=== PATIENT | female | born 1970 ===

== ENCOUNTER 2016-10-15 18:15 | Inpatient (IN) | payer OTHER ==
[2016-10-15] MEDS ORDERED: Sodium Chloride 0.9% 1,000 ML IV STA ×2 (18:32→21:39)
--- NOTE | 2016-10-15 18:45 | ED PDOC ---
HPI: Abdomen Time Seen by Provider: 10/15/16 18:21 Chief Complaint (Nursing): Abdominal Pain Chief Complaint (Provider): Abdominal Pain History Per: Patient History/Exam Limitations: no limitations Onset/Duration Of Symptoms: Days (x2) Current Symptoms Are (Timing): Still Present Additional Complaint(s): Amanda Rao is a 46 year old female who presents to the emergency department with a complaint of abdominal pain associated with 1 episode of non-bloody, non- bilious vomiting ongoing for 2 days. Denied fever, chills, diarrhea, constipation, dysuria, hematuria or taking pain medication for relief. PMD: none provided Past Medical History Reviewed: Historical Data, Nursing Documentation, Vital Signs Vital Signs: Last Vital Signs Temp 97.9 F 10/17/16 16:09 Pulse 80 10/17/16 16:09 Resp 18 10/17/16 16:09 BP 123/77 10/17/16 16:09 Pulse Ox 100 10/17/16 23:36 - Medical History PMH: Anemia Denies: Chronic Kidney Disease - Family History Family History: States: Unknown Family Hx - Home Medications Home Medications: Ambulatory Orders Medication Instructions Recorded Amoxicillin/Clavulanate [Augmentin 1 tab PO Q12 #14 tab 10/17/16 875 MG-125 MG] Ferrous Sulfate 325 mg PO BID #60 tablet 10/17/16 oxyCODONE/Acetaminophen [Percocet 1 tab PO Q6 PRN #20 tab 10/17/16 5/325 mg Tab] - Allergies Allergies/Adverse Reactions: Allergies Allergy/AdvReac Type Severity Reaction Status Date / Time No Known Allergies Allergy Verified 10/15/16 21:45 Review of Systems ROS Statement: Except As Marked, All Systems Reviewed And Found Negative Constitutional: Negative for: Fever, Chills Gastrointestinal: Positive for: Nausea, Vomiting (non-blood, non-bilious), Abdominal Pain. Negative for: Diarrhea, Constipation Genitourinary Female: Negative for: Dysuria, Hematuria Physical Exam - Reviewed Nursing Documentation Reviewed: Yes Vital Signs Reviewed: Yes - Physical Exam Appears: Positive for: Well, Non-toxic, No Acute Distress Head Exam: Positive for: ATRAUMATIC, NORMAL INSPECTION, NORMOCEPHALIC Skin: Positive for: Normal Color Cardiovascular/Chest: Positive for: Regular Rate, Rhythm Respiratory: Positive for: Normal Breath Sounds. Negative for: Crackles, Rales , Rhonchi, Wheezing Gastrointestinal/Abdominal: Positive for: Bowel Sounds, Soft, Tenderness ( general). Negative for: Normal Exam, Guarding, Rebound Neurologic/Psych: Positive for: Alert, civil engineer helper II-XII, Oriented - Laboratory Results Result Diagrams: 10/17/16 05:10 10/17/16 06:50 - ECG O2 Sat by Pulse Oximetry: 100 (RA) Pulse Ox Interpretation: Normal Medical Decision Making Medical Decision Making: Initial Impression: Abdominal pain Initial Plan: * CT ABD/Pelvis with IV contrast * EKG * Labs * Lipase * Urine dipstick * Urine * Bentyl 20mg PO * NS 1,000ml IV per 1,000mls/hr * Urinalysis Scribe Attestation: Documented by Marisa Bonilla, acting as a scribe for Shi Lindsay MD. Provider Scribe Attestation: All medical record entries made by the Scribe were at my direction and personally dictated by me. I have reviewed the chart and agree that the record accurately reflects my personal performance of the history, physical exam, medical decision making, and the department course for this patient. I have also personally directed, reviewed, and agree with the discharge instructions and disposition. Disposition - Clinical Impression Clinical Impression: Abdominal pain in female - Patient ED Disposition Is Patient to be Admitted: Transfer of Care - Disposition Disposition Time: 19:00 Condition: STABLE Patient Signed Over To: Chidi Montalvo Handoff Comments: Pending labs and CT.
[2016-10-15 19:05] LABS: BASO # 0.1 K/uL (0.0-0.2); BASO % 0.4 % (0.0-2.0); EOS # 0.1 K/uL (0.0-0.7); EOS % 0.8 % (0.0-4.0); HEMATOCRIT 32.6 % (34.0-47.0); LYMPH # 2.1 K/uL (1.0-4.3); LYMPH % 13.8 % (20.0-40.0); MEAN CORPUSCULAR HEMOGLOBIN 22.4 pg (27.0-31.0); MEAN CORPUSCULAR HGB CONC 31.6 g/dL (33.0-37.0); MEAN PLATELET VOLUME 8.6 fl (7.2-11.7); MONO # 1.1 K/uL (0.0-0.8); MONO % 7.4 % (0.0-10.0); NEUT # 11.6 K/uL (1.8-7.0); NEUT % 77.6 % (50.0-75.0); RED CELL DISTRIBUTION WIDTH 17.3 % (11.5-14.5)
[2016-10-15 19:16] LABS: ALB/GLOB RATIO 1.3 (1.0-2.1); ALKALINE PHOSPHATASE 97 U/L (38-126); ALT/SGPT 27 U/L (9-52); AST/SGOT 24 U/L (14-36); BILIRUBIN,TOTAL 0.2 mg/dl (0.2-1.3); BLOOD UREA NITROGEN 12 mg/dl (7-17); CARBON DIOXIDE 23 mmol/L (22-30); CHLORIDE 106 mmol/L (98-107); GFR AFRICAN-AMERICAN > 60; GLUCOSE,RANDOM 90 mg/dL (65-105); LIPASE 168 U/L (23-300); POTASSIUM 3.8 MMOL/L (3.6-5.0); SODIUM 140 mmol/l (132-148); TOTAL PROTEIN 7.8 G/DL (6.3-8.2)
[2016-10-15 19:16] LABS: URINE BILIRUBIN NEGATIVE (NEGATIVE); URINE BLOOD NEGATIVE (NEGATIVE); URINE COLOR YELLOW (YELLOW); URINE GLUCOSE (UA) NEG (Normal); URINE KETONE NEGATIVE (NEGATIVE); URINE LEUKOCYTE ESTERASE NEG Leu/uL (Negative); URINE PROTEIN NEGATIVE (NEGATIVE); URINE UROBILINOGEN 0.2-1.0 mg/dL (0.2-1.0)
[2016-10-15] MEDS ORDERED: Sodium Chloride 0.9% 50 ML IV ONE (20:09)
[2016-10-15] MEDS ORDERED: Iohexol 300 100 ML IJ ONE (20:09)
--- NOTE | 2016-10-15 21:36 | ED PDOC ---
- Laboratory Results Result Diagrams: 10/17/16 05:10 10/17/16 06:50 - ECG O2 Sat by Pulse Oximetry: 100 (RA) Medical Decision Making Medical Decision Making: Time: 1899 --Patient was endorsed to provider by Dr. Shi Lindsay. Pending CT results. Time: 2113 --CT ABD/pelvis FINDINGS: Limitations: The examination is degraded by motion artifact. Lower thorax: No pulmonary airspace consolidation or pleural fluid collection in the imaged portion of the thorax. ABDOMEN: Liver: No acute findings. Gallbladder and bile ducts: No acute findings. No radiopaque gallstones. Pancreas: No acute findings. Spleen: No acute findings. Adrenals: No acute findings. Kidneys and ureters: No acute findings. Stomach and bowel: No evident acute abnormality of the stomach, small bowel, or colon. Appendix: Dilated, fluid-filled appendix that measures up to 11 mm in diameter. Mild periappendiceal fat stranding. The appendix extends inferior and anterior from the cecum, situated in the superficial anterolateral mid right hemipelvis (series 2, images 60-61). Small amount of periappendiceal free fluid. No abscess or extraluminal air. PELVIS: Bladder: No evident acute abnormality. Reproductive: Redemonstrated enlarged uterus containing an approximately 13 cm heterogeneous mass consistent with a fibroid, not significantly changed from the prior study. No evident acute abnormality of either ovary. Interval resolution of the previously demonstrated fluid attenuation left adnexal lesions. ABDOMEN and PELVIS: Intraperitoneal space: No free intraperitoneal air. Bones/joints: No acute findings. Redemonstrated prominent disc-osteophyte complexes at several levels in the lower thoracic spine with associated moderate central canal narrowing. Soft tissues: No acute findings. Vasculature: No acute findings. No abdominal aortic aneurysm. Lymph nodes: No acute findings. IMPRESSION: 1. Acute appendicitis. No abscess or evidence of perforation. 2. Redemonstrated approximately 13 cm uterine fibroid. 3. Redemonstrated prominent disc-osteophyte complexes at several levels in the lower thoracic spine with associated moderate central canal narrowing Time: 2129 --Zosyn and blood culture ordered for appendicitis finding. --Admitted to hospital. --Discussed case with surgeon certified meeting professional, Dr. Bernal, who accepted patient under his care. Scribe Attestation: Documented by Marisa Bonilla, acting as a scribe for Chidi Montalvo MD. Provider Scribe Attestation: All medical record entries made by the Scribe were at my direction and personally dictated by me. I have reviewed the chart and agree that the record accurately reflects my personal performance of the history, physical exam, medical decision making, and the department course for this patient. I have also personally directed, reviewed, and agree with the discharge instructions and disposition. Disposition Counseled Patient/Family Regarding: Studies Performed, Diagnosis - Clinical Impression Clinical Impression: Appendicitis - POA Present On Arrival: None - Disposition Disposition: Admitted as In-Patient Disposition Time: 22:00 Condition: STABLE
[2016-10-15] MEDS ORDERED: Piperacillin/Tazobact 4.5 GM in Sodium Chloride 0.9% 100 ML IVPB ONE (22:00)
--- NOTE | 2016-10-15 22:05 | CP.PCM.HP ---
History of Present Illness - History of Present Illness History of Present Illness: CC: abd pain HPI: This is a 44 y/o female with medical history of anemia only, who comes in with abd pain. States abd pain started yesterday. It is generalized across the abdomen. There is some associated n/v. No diarrhea, no blood in stool. Nothing makes pain better or worse. Patient has never these symptoms before. ROS: 14 systems reviewed, negative other than HPI MHx: Anemia SHx: None Allergies: None Medications: None Social Hx: Lives with family, denies EtOH or tobacco Family Hx: Reviewed, no significant findings Present on Admission - Present on Admission Any Indicators Present on Admission: No Past Patient History - Infectious Disease Hx of Infectious Diseases: None - Past Medical History & Family History Past Medical History?: Yes - Past Social History Smoking Status: Never Smoked - CARDIAC Hx Cardiac Disorders: No - PULMONARY Hx Respiratory Disorders: No - NEUROLOGICAL Hx Neurological Disorder: Yes Hx Vertigo: Yes (questionable. on antivert) - HEENT Hx HEENT Problems: No - RENAL Hx Chronic Kidney Disease: No - ENDOCRINE/METABOLIC Hx Endocrine Disorders: No - HEMATOLOGICAL/ONCOLOGICAL Hx Anemia: Yes - INTEGUMENTARY Hx Dermatological Problems: No - MUSCULOSKELETAL/RHEUMATOLOGICAL Hx Musculoskeletal Disorders: No Hx Falls: No - GASTROINTESTINAL Hx Gastrointestinal Disorders: No - GENITOURINARY/GYNECOLOGICAL Hx Genitourinary Disorders: No - PSYCHIATRIC Hx Psychophysiologic Disorder: No Hx Substance Use: No - SURGICAL HISTORY Hx Surgeries: No - ANESTHESIA Hx Anesthesia: No Hx Anesthesia Reactions: No Meds Allergies/Adverse Reactions: Allergies Allergy/AdvReac Type Severity Reaction Status Date / Time No Known Allergies Allergy Verified 10/15/16 21:45 Physical Exam - Constitutional Appears: No Acute Distress - Head Exam Head Exam: ATRAUMATIC, NORMOCEPHALIC - Eye Exam Eye Exam: EOMI, PERRL - ENT Exam ENT Exam: Mucous Membranes Moist - Neck Exam Neck exam: Positive for: Full Rom - Respiratory Exam Respiratory Exam: Clear to Auscultation Bilateral, NORMAL BREATHING PATTERN - Cardiovascular Exam Cardiovascular Exam: REGULAR RHYTHM, +S1, +S2 - GI/Abdominal Exam GI & Abdominal Exam: Normal Bowel Sounds, Soft, Tenderness - Extremities Exam Extremities exam: Positive for: full ROM, normal inspection - Neurological Exam Neurological exam: Alert, CN II-XII Intact, Oriented x3 - Psychiatric Exam Psychiatric exam: Normal Affect, Normal Mood - Skin Skin Exam: Dry, Warm Results - Vital Signs Recent Vital Signs: Last Vital Signs Temp 99.6 F 10/15/16 21:46 Pulse 63 10/15/16 21:46 Resp 18 10/15/16 21:46 BP 126/73 10/15/16 21:46 Pulse Ox 99 10/15/16 21:46 - Labs Result Diagrams: 10/15/16 19:03 10/15/16 19:03 - Imaging and Cardiology CT scan - abdomen Status: Report reviewed by me (Appx) Assessment & Plan (1) Appendicitis Assessment and Plan: A/P: 46 y/o female with acute appendicitis. -NPO, IVF -Morphine for pain IV per pain scale, Zofran for n/v IV -Continue Zosyn IV -Bernal for surgical consult -SCDs only for DVT PPx Status: Acute (2) DVT prophylaxis Status: Acute
[2016-10-15] MEDS ORDERED: Morphine 4 MG/ML VIAL IVP PRN (22:10)
[2016-10-15] MEDS: Sodium Chloride 0.9% 1,000 ML IV SCH (22:45)
[2016-10-16] MEDS: Piperacillin/Tazobact 3.375 GM in Sodium Chloride 0.9% 100 ML IVPB SCH ×4 (04:39→21:17)
[2016-10-16 06:34] LABS: MEAN CELL VOLUME 71.8 fl (81.0-99.0); MEAN CORPUSCULAR HEMOGLOBIN 22.9 pg (27.0-31.0); MEAN CORPUSCULAR HGB CONC 31.9 g/dL (33.0-37.0); RED CELL DISTRIBUTION WIDTH 17.5 % (11.5-14.5); WHITE BLOOD COUNT 10.4 K/uL (4.8-10.8)
[2016-10-16 06:45] LABS: BLOOD UREA NITROGEN 8 mg/dl (7-17); CALCIUM 8.1 mg/dL (8.4-10.2); CARBON DIOXIDE 21 mmol/L (22-30); CHLORIDE 110 mmol/L (98-107); GFR AFRICAN-AMERICAN > 60; GLUCOSE,RANDOM 87 mg/dL (65-105); POTASSIUM 3.7 MMOL/L (3.6-5.0); SODIUM 140 mmol/l (132-148)
[2016-10-16 07:10] LABS: THYROID STIMULATING HORMONE 3.39 mIU/ML (0.46-4.68)
--- NOTE | 2016-10-16 07:25 | CP.PCM.CON ---
History of Present Illness - History of Present Illness History of Present Illness: Surgery 46 F with PMH of uterine fibroids, gastritis and anemia presents with Abd pain that started a few days ago. Pt reports that pain is located on periumbilical area and radiates to her back. Pain is sudden and worsening. Pt reports N/V. Non bloody non bilious. Denies F/D/CP/SOB/dysuria/hematochezia/hematemesis/ hematuria/vaginal bleeding/sick contact/recent travel. Reports anorexia and last time she ate was yesterday. Pt is constipated. CT of abd reads acute appendicitis and large uterine fibroids. WBC was 15. Surgery is consulted to evaluate for acute appendicitis. PSH: none PMH: Anemia, gastritis, fibroids, 4 vaginal delivery. Review of Systems - Review of Systems Review of Systems: See HPI Past Patient History - Infectious Disease Hx of Infectious Diseases: None - Past Medical History & Family History Past Medical History?: Yes - Past Social History Smoking Status: Never Smoked - CARDIAC Hx Cardiac Disorders: No - PULMONARY Hx Respiratory Disorders: No - NEUROLOGICAL Hx Neurological Disorder: Yes Hx Vertigo: Yes (questionable. on antivert) - HEENT Hx HEENT Problems: No - RENAL Hx Chronic Kidney Disease: No - ENDOCRINE/METABOLIC Hx Endocrine Disorders: No - HEMATOLOGICAL/ONCOLOGICAL Hx Anemia: Yes - INTEGUMENTARY Hx Dermatological Problems: No - MUSCULOSKELETAL/RHEUMATOLOGICAL Hx Falls: No - GASTROINTESTINAL Hx Gastrointestinal Disorders: No Hx Gastroesophageal Reflux: Yes - GENITOURINARY/GYNECOLOGICAL Hx Genitourinary Disorders: No - PSYCHIATRIC Hx Substance Use: No - SURGICAL HISTORY Hx Surgeries: No Other/Comment: EGD - ANESTHESIA Hx Anesthesia: Yes Hx Anesthesia Reactions: No Meds Allergies/Adverse Reactions: Allergies Allergy/AdvReac Type Severity Reaction Status Date / Time No Known Allergies Allergy Verified 10/15/16 21:45 - Medications Medications: Current Medications Piperacillin Sod/Tazobactam (Sod 3.375 gm/ Sodium Chloride) 100 mls @ 100 mls/ hr IVPB Q6 [facility] Last Admin: 10/16/16 04:39 Dose: 100 mls/hr Sodium Chloride (Sodium Chloride 0.9%) 1,000 mls @ 100 mls/hr IV .Q10H [facility] Stop: 10/16/16 18:14 Last Admin: 10/15/16 22:45 Dose: 100 mls/hr Morphine Sulfate (Morphine) 2 mg IVP Q4 PRN PRN Reason: Pain, Mild (1-3) Morphine Sulfate (Morphine) 4 mg IVP Q4 PRN PRN Reason: Pain, moderate (4-7) Ondansetron HCl (Zofran Inj) 4 mg IVP Q6 PRN PRN Reason: Nausea/Vomiting Physical Exam - Constitutional Appears: Non-toxic, No Acute Distress - Head Exam Head Exam: ATRAUMATIC, NORMAL INSPECTION, NORMOCEPHALIC - Eye Exam Eye Exam: EOMI, Normal appearance, PERRL Pupil Exam: NORMAL ACCOMODATION, PERRL - ENT Exam ENT Exam: Mucous Membranes Moist, Normal Exam - Neck Exam Neck exam: Positive for: Normal Inspection - Respiratory Exam Respiratory Exam: Clear to Auscultation Bilateral, NORMAL BREATHING PATTERN - Cardiovascular Exam Cardiovascular Exam: REGULAR RHYTHM - GI/Abdominal Exam GI & Abdominal Exam: Mass, Soft, Tenderness. absent: Distended, Firm, Guarding , Hernia, Pulsatile Mass, Rebound, Rigid Additional comments: Palpable mass TTP on suprapubic area. Low abd TTP. Epigastric TTP. - Exam Exam: NORMAL INSPECTION - Extremities Exam Extremities exam: Positive for: full ROM, normal inspection - Back Exam Back exam: NORMAL INSPECTION - Neurological Exam Neurological exam: Alert, CN II-XII Intact, Normal Gait, Oriented x3, Reflexes Normal - Psychiatric Exam Psychiatric exam: Normal Affect, Normal Mood - Skin Skin Exam: Dry, Intact, Normal Color, Warm Results - Vital Signs Recent Vital Signs: Last Vital Signs Temp 99.3 F 10/15/16 23:49 Pulse 66 10/15/16 23:49 Resp 18 10/15/16 23:49 BP 120/73 10/15/16 23:49 Pulse Ox 100 10/15/16 23:49 - Labs Result Diagrams: 10/16/16 05:30 10/16/16 05:30 Labs: Laboratory Results - last 24 hr 10/16/16 10/16/16 05:30 05:30 WBC 10.4 RBC 3.90 Hgb 8.9 L Hct 28.0 L MCV 71.8 L MCH 22.9 L MCHC 31.9 L RDW 17.5 H Plt Count 276 Sodium 140 Potassium 3.7 Chloride 110 H Carbon Dioxide 21 L Anion Gap 13 BUN 8 Creatinine 0.6 L Est GFR ( Amer) > 60 Est GFR (Non-Af Amer) > 60 Random Glucose 87 Calcium 8.1 L TSH 3rd Generation 3.39 Assessment & Plan - Assessment and Plan (Free Text) Assessment: Acute appendicitis WBC 15k-> 10k CT: acute appendicitis, fibroids -NPO -IVF -ABX -Will plan OR today for appendectomy -Nausea control -Pain control Will MICHELET Bernal
--- NOTE | 2016-10-16 08:14 | CT ---
PROCEDURE: CT Abdomen and Pelvis with contrast HISTORY: Generalized abdominal pain, vomiting COMPARISON: 08/27/2015. TECHNIQUE: Contrast dose: 100 cc Omnipaque 300 Radiation dose: Total exam DLP = 947.66 mGy-cm. This CT exam was performed using one or more of the following dose reduction techniques: Automated exposure control, adjustment of the mA and/or kV according to patient size, and/or use of iterative reconstruction technique. FINDINGS: LOWER THORAX: Unremarkable. LIVER: Unremarkable. No gross lesion or ductal dilatation. GALLBLADDER AND BILE DUCTS: Unremarkable. PANCREAS: Unremarkable. No gross lesion or ductal dilatation. SPLEEN: Unremarkable. ADRENALS: Unremarkable. No mass. KIDNEYS AND URETERS: Unremarkable. No hydronephrosis. No solid mass. VASCULATURE: Unremarkable. No aortic aneurysm. BOWEL: Unremarkable. No obstruction. No gross mural thickening. APPENDIX: Acute appendicitis. The appendix is edematous, thickened wall and inflammatory changes about the tip of the appendix with adjacent fluid. No evidence of abscess, loculated air, free air. PERITONEUM: Unremarkable. No free fluid. No free air. LYMPH NODES: Unremarkable. No enlarged lymph nodes. BLADDER: Unremarkable. REPRODUCTIVE: Enlarged uterus, stable in size. Measurements on coronal 12.4 x 14.2 cm. Previously 12.7 x 14.6 cm BONES: No acute fracture. OTHER FINDINGS: None. IMPRESSION: Acute appendicitis. Additional benign and/or incidental findings described above. Concordant results (preliminary interpretation) provided by [employer]. Procedure Completed: 20:15. Preliminary ([facility]) Report: Dictated and Authenticated: 21:14. Final Interpretation: 08:12. October 16, 2016.
[2016-10-16] MEDS: Sodium Chloride 0.9% 1,000 ML IV SCH (09:03)
[2016-10-16 09:29] LABS: PARTIAL THROMBOPLASTIN TIME 28.9 Seconds (25.6-37.1)
[2016-10-16] MEDS ORDERED: Succinylcholine 200 mg/10 ml Inj IV ONE (09:41)
[2016-10-16] MEDS ORDERED: Propofol 10 mg/ml Inj (20 ML) ONE (09:41)
[2016-10-16] MEDS ORDERED: Lidocaine 4% (Laryng-O-Jet) Kit MM ONE (09:41)
[2016-10-16] MEDS ORDERED: Rocuronium 10 mg/ml (5 ml) ONE (09:41)
[2016-10-16] MEDS ORDERED: Dexamethasone 4 mg/1 ml ONE (09:41)
[2016-10-16] MEDS ORDERED: Sodium Chloride 0.9% 1,000 ML IV ONE (09:50)
[2016-10-16] MEDS ORDERED: Piperacillin/Tazobact 3.375 gm Inj IVPB ONE (10:00)
[2016-10-16] MEDS ORDERED: Neostigmine Methylsulfate 3mg/3ml Syringe IV ONE ×3 (10:17→10:59)
[2016-10-16] MEDS ORDERED: Neostigmine Methylsulfate 2 MG/2 ML ML IV ONE (10:29)
[2016-10-16] MEDS ORDERED: Bupivacaine 0.5% 50 ML IJ ONE (10:30)
[2016-10-16] MEDS ORDERED: Lactated Ringer's 1,000 ML IV ONE (10:35)
--- NOTE | 2016-10-16 10:59 | PCM.SURG1 ---
Surgeon's Initial Post Op Note - Surgeon's Notes Surgeon: Dr. Bernal Floor Inspector: Dr. Erick Harrington Type of Anesthesia: General Endo Anesthesia Administered By: Justo Pre-Operative Diagnosis: acute appendicitis Operative Findings: same Post-Operative Diagnosis: same Operation Performed: laparoscopic appendectomy Specimen/Specimens Removed: appendix Estimated Blood Loss: EBL {In ML}: 4 Blood Products Given: N/A Drains Used: No Drains Post-Op Condition: Good Date of Surgery/Procedure: 10/16/16 Time of Surgery/Procedure: 10:59
[2016-10-16] MEDS ORDERED: HYDROmorphone 0.5 mg/0.5 ml ISec IVP PRN (11:12)
--- NOTE | 2016-10-16 11:32 | CARD ---
APPROVED REPORT EKG Measurement Heart [id number] <Conclusion> Normal sinus rhythm Normal ECG
--- NOTE | 2016-10-16 13:23 | CP.PCM.PN ---
Subjective - Date & Time of Evaluation Date of Evaluation: 10/16/16 Time of Evaluation: 12:00 - Subjective Subjective: Patient seen and examined bedside. s/p lap appendectomy. Feeling better. Pain is controlled Hemodynamically stable, afebrile Objective - Vital Signs/Intake and Output Vital Signs (last 24 hours): Temp Pulse Resp BP Pulse Ox 98.1 F 82 20 120/66 98 10/16/16 11:10 10/16/16 12:25 10/16/16 12:25 10/16/16 12:25 10/16/16 12:25 Intake and Output: 10/16/16 10/16/16 06:59 18:59 Intake Total 1200 Balance 1200 - Medications Medications: Current Medications Ferrous Sulfate (Feosol) 325 mg PO BID [facility] Piperacillin Sod/Tazobactam (Sod 3.375 gm/ Sodium Chloride) 100 mls @ 100 mls/ hr IVPB Q6 [facility] Last Admin: 10/16/16 09:38 Dose: 100 mls/hr Sodium Chloride (Sodium Chloride 0.9%) 1,000 mls @ 100 mls/hr IV .Q10H [facility] Stop: 10/16/16 18:14 Last Admin: 10/16/16 09:03 Dose: 100 mls/hr Lactated Ringer's (Lactated Ringer's) 1,000 mls @ 100 mls/hr IV .Q10H [facility] Morphine Sulfate (Morphine) 2 mg IVP Q4 PRN PRN Reason: Pain, Mild (1-3) Morphine Sulfate (Morphine) 4 mg IVP Q4 PRN PRN Reason: Pain, moderate (4-7) Ondansetron HCl (Zofran Inj) 4 mg IVP Q6 PRN PRN Reason: Nausea/Vomiting Pantoprazole Sodium (Protonix Inj) 40 mg IVP DAILY [facility] Last Admin: 10/16/16 08:59 Dose: 40 mg - Labs Labs: 10/16/16 05:30 10/16/16 05:30 PT 12.8 Seconds (9.8-13.1) 10/16/16 08:30 INR 1.2 (0.9-1.2) 10/16/16 08:30 APTT 28.9 Seconds (25.6-37.1) 10/16/16 08:30 - Constitutional Appears: Non-toxic, No Acute Distress - Head Exam Head Exam: ATRAUMATIC, NORMAL INSPECTION, NORMOCEPHALIC - Eye Exam Eye Exam: EOMI, Normal appearance, PERRL Pupil Exam: NORMAL ACCOMODATION - ENT Exam ENT Exam: Mucous Membranes Moist, Normal Exam - Neck Exam Neck Exam: Full ROM, Normal Inspection - Respiratory Exam Respiratory Exam: Clear to Ausculation Bilateral, NORMAL BREATHING PATTERN. absent: Rales, Rhonchi, Wheezes - Cardiovascular Exam Cardiovascular Exam: REGULAR RHYTHM, RRR, +S1, +S2. absent: JVD - GI/Abdominal Exam GI & Abdominal Exam: Soft, Tenderness (with palpation), Normal Bowel Sounds. absent: Distended, Guarding, Rebound - Rectal Exam Rectal Exam: Deferred - Extremities Exam Extremities Exam: Full ROM, Normal Capillary Refill, Normal Inspection. absent : Pedal Edema - Back Exam Back Exam: NORMAL INSPECTION - Neurological Exam Neurological Exam: Alert, Awake, CN II-XII Intact, Oriented x3 - Psychiatric Exam Psychiatric exam: Normal Affect, Normal Mood - Skin Skin Exam: Dry, Intact, Normal Color, Warm Assessment and Plan - Assessment and Plan (Free Text) Assessment: 46 F with PMH of uterine fibroids, gastritis and anemia presented with Abd pain that started a few days ago. Pt reports that pain is located on periumbilical area and radiates to her back. CT of abd showed acute appendicitis and large uterine fibroids. WBC was 15. Surgery consulted and patient taken for lap appendectomy. 1. Appendicitis s/p lap appendectomy surgeryy following Continue Zosyn IV pain management Start diet and promote ambulation SCDs only for DVT PPx 2. Microcytic Anemia most likely anemia of chronic disease with iron deficiency and dilutional Started Ferrous sulfate PO 3 DVT prophylaxis SCD
[2016-10-17] MEDS: Lactated Ringer's 1,000 ML IV SCH ×2 (00:35→06:29)
[2016-10-17] MEDS: Piperacillin/Tazobact 3.375 GM in Sodium Chloride 0.9% 100 ML IVPB SCH ×2 (04:27→09:28)
[2016-10-17 06:05] LABS: HEMATOCRIT 29.5 % (34.0-47.0); MEAN CELL VOLUME 72.1 fl (81.0-99.0); MEAN CORPUSCULAR HEMOGLOBIN 22.3 pg (27.0-31.0); WHITE BLOOD COUNT 12.2 K/uL (4.8-10.8)
--- NOTE | 2016-10-17 07:14 | CP.PCM.DIS ---
Provider - Provider Date of Admission: 10/15/16 21:37 Attending physician: Kenia Hinson MD Primary care physician: None Consults: surgery consult Time Spent in preparation of Discharge (in minutes): 20 Hospital Course - Lab Results Lab Results: Micro Results 10/15/16 21:50 Blood Blood Culture - Preliminary NO GROWTH AFTER 24 HOURS Most Recent Lab Values WBC 12.2 K/uL (4.8-10.8) H 10/17/16 05:10 RBC 4.09 Mil/uL (3.80-5.20) 10/17/16 05:10 Hgb 9.1 g/dL (12.0-16.0) L 10/17/16 05:10 Hct 29.5 % (34.0-47.0) L 10/17/16 05:10 MCV 72.1 fl (81.0-99.0) L 10/17/16 05:10 MCH 22.3 pg (27.0-31.0) L 10/17/16 05:10 MCHC 31.0 g/dL (33.0-37.0) L 10/17/16 05:10 RDW 18.0 % (11.5-14.5) H 10/17/16 05:10 Plt Count 281 K/uL (130-400) 10/17/16 05:10 MPV 8.6 fl (7.2-11.7) 10/15/16 19:03 Neut % (Auto) 77.6 % (50.0-75.0) H 10/15/16 19:03 Lymph % (Auto) 13.8 % (20.0-40.0) L 10/15/16 19:03 Yates % (Auto) 7.4 % (0.0-10.0) 10/15/16 19:03 Eos % (Auto) 0.8 % (0.0-4.0) 10/15/16 19:03 Baso % (Auto) 0.4 % (0.0-2.0) 10/15/16 19:03 Neut # 11.6 K/uL (1.8-7.0) H 10/15/16 19:03 Lymph # 2.1 K/uL (1.0-4.3) 10/15/16 19:03 Yates # 1.1 K/uL (0.0-0.8) H 10/15/16 19:03 Eos # 0.1 K/uL (0.0-0.7) 10/15/16 19:03 Baso # 0.1 K/uL (0.0-0.2) 10/15/16 19:03 PT 12.8 Seconds (9.8-13.1) 10/16/16 08:30 INR 1.2 (0.9-1.2) 10/16/16 08:30 APTT 28.9 Seconds (25.6-37.1) 10/16/16 08:30 Sodium 140 mmol/l (132-148) 10/16/16 05:30 Potassium 3.7 MMOL/L (3.6-5.0) 10/16/16 05:30 Chloride 110 mmol/L (98-107) H 10/16/16 05:30 Carbon Dioxide 21 mmol/L (22-30) L 10/16/16 05:30 Anion Gap 13 (10-20) 10/16/16 05:30 BUN 8 mg/dl (7-17) 10/16/16 05:30 Creatinine 0.6 mg/dL (0.7-1.2) L 10/16/16 05:30 Est GFR ( Amer) > 60 10/16/16 05:30 Est GFR (Non-Af Amer) > 60 10/16/16 05:30 Random Glucose 87 mg/dL (65-105) 10/16/16 05:30 Calcium 8.1 mg/dL (8.4-10.2) L 10/16/16 05:30 Total Bilirubin 0.2 mg/dl (0.2-1.3) 10/15/16 19:03 AST 24 U/L (14-36) 10/15/16 19:03 ALT 27 U/L (9-52) 10/15/16 19:03 Alkaline Phosphatase 97 U/L (38-126) 10/15/16 19:03 Total Protein 7.8 G/DL (6.3-8.2) 10/15/16 19:03 Albumin 4.5 g/dL (3.5-5.0) 10/15/16 19:03 Globulin 3.3 gm/dL (2.2-3.9) 10/15/16 19:03 Albumin/Globulin Ratio 1.3 (1.0-2.1) 10/15/16 19:03 Lipase 168 U/L (23-300) 10/15/16 19: TSH 3rd Generation 3.39 mIU/ML (0.46-4.68) 10/16/16 05:30 Urine Color Yellow (YELLOW) 10/15/16 19:01 Urine Clarity Slighty-cloudy (Clear) 10/15/16 19: Urine pH 6.0 (5.0-8.0) 10/15/16 19: Ur Specific Mcclure 1.018 (1.003-1.030) 10/15/16 19:01 Urine Protein Negative mg/dL (NEGATIVE) 10/15/16 19: Urine Glucose (UA) Neg mg/dL (Normal) 10/15/16 19: Urine Ketones Negative mg/dL (NEGATIVE) 10/15/16 19:01 Urine Blood Negative (NEGATIVE) 10/15/16 19: Urine Nitrate Negative (NEGATIVE) 10/15/16 19: Urine Bilirubin Negative (NEGATIVE) 10/15/16 19: Urine Urobilinogen 0.2-1.0 mg/dL (0.2-1.0) 10/15/16 19:01 Ur Leukocyte Esterase Neg Darlene/uL (Negative) 10/15/16 19:01 Ur Squamous Epith Cells 1 /hpf (0-5) 10/15/16 19:01 Amorphous Sediment Rare /ul (<OCC) H 10/15/16 19:01 - Hospital Course Hospital Course: 46 F with PMH of uterine fibroids, gastritis and anemia presented with Abd pain that started a few days ago. Pt reports that pain is located on periumbilical area and radiates to her back. CT of abd showed acute appendicitis and large uterine fibroids. WBC was 15. Surgery consulted and patient taken for lap appendectomy. Post op doing well, pain controlled, ambulating, voiding , passing flatus and tolerating po Intake hemodynamically stable, afebrile Patient cleared for discharge by surgery Will d/c home on augmentin Po for 7 day sand Percoset PRN for pain 1. Appendicitis s/p lap appendectomy surgery fcleared for discharge Received Zosyn IV. will d/c on Augmentin PO Continue pain management with Percoset PRN tolerating Po intake 2. Microcytic Anemia most likely anemia of chronic disease with iron deficiency and dilutional Started Ferrous sulfate PO follow up with [facility] 3 DVT prophylaxis SCD Discharge Exam - Head Exam Head Exam: ATRAUMATIC, NORMAL INSPECTION, NORMOCEPHALIC - Eye Exam Eye Exam: EOMI, Normal appearance, PERRL Pupil Exam: NORMAL ACCOMODATION - ENT Exam ENT Exam: Mucous Membranes Moist, Normal Exam - Neck Exam Neck exam: Full Rom, Normal Inspection - Respiratory Exam Respiratory Exam: Clear to PA & Lateral, NORMAL BREATHING PATTERN. absent: Rales, Rhonchi, Wheezes - Cardiovascular Exam Cardiovascular Exam: REGULAR RHYTHM, RRR, +S1, +S2. absent: JVD - GI/Abdominal Exam GI & Abdominal Exam: Normal Bowel Sounds, Soft. absent: Distended, Guarding, Rebound, Tenderness - Rectal Exam Rectal Exam: Deferred - Extremities Exam Extremities exam: full ROM, normal inspection, pedal pulses present - Back Exam Back exam: NORMAL INSPECTION - Neurological Exam Neurological exam: Alert, CN II-XII Intact, Oriented x3, Reflexes Normal - Psychiatric Exam Psychiatric exam: Normal Affect, Normal Mood - Skin Skin Exam: Dry, Warm Discharge Plan - Discharge Medications Prescriptions: Amoxicillin/Clavulanate [Augmentin 875 MG-125 MG] 1 tab PO Q12 #14 tab oxyCODONE/Acetaminophen [Percocet 5/325 mg Tab] 1 tab PO Q6 PRN #20 tab PRN Reason: Pain, Severe (8-10) - Follow Up Plan Condition: STABLE Disposition: HOME/ ROUTINE Patient education suggested?: Yes Instructions: Laparoscopic Appendectomy (DC), Anemia (DC), Iron Rich Diet (DC) Additional Instructions: rosaline biswas de 1 semana Referrals: [facility] [Outside] Izaiah Bernal MD [Staff Provider] -
[2016-10-17 07:40] LABS: BLOOD UREA NITROGEN 9 mg/dl (7-17); CALCIUM 8.7 mg/dL (8.4-10.2); CARBON DIOXIDE 17 mmol/L (22-30); CHLORIDE 112 mmol/L (98-107); GFR AFRICAN-AMERICAN > 60; GLUCOSE,RANDOM 74 mg/dL (65-105); POTASSIUM 3.7 MMOL/L (3.6-5.0); SODIUM 140 mmol/l (132-148)
--- NOTE | 2016-10-17 09:29 | CP.PCM.PN ---
<Kasey Suarez - Last Filed: 10/17/16 09:25> Subjective - Date & Time of Evaluation Date of Evaluation: 10/17/16 Time of Evaluation: 09:25 - Subjective Subjective: General Surgery - Dr. Bernal Pt [place]. Pt doing well post-op. She has been OOB and ambulating within the room, tolerating regular diet. No N/V, F/C, SOB/CP. Objective - Vital Signs/Intake and Output Vital Signs (last 24 hours): Temp Pulse Resp BP Pulse Ox 98.7 F 68 20 131/79 95 10/17/16 07:47 10/17/16 07:47 10/17/16 07:47 10/17/16 07:47 10/17/16 07:47 - Medications Medications: Current Medications Ferrous Sulfate (Feosol) 325 mg PO BID [facility] Last Admin: 10/17/16 08:28 Dose: 325 mg Piperacillin Sod/Tazobactam (Sod 3.375 gm/ Sodium Chloride) 100 mls @ 100 mls/ hr IVPB Q6 [facility] Last Admin: 10/17/16 04:27 Dose: 100 mls/hr Lactated Ringer's (Lactated Ringer's) 1,000 mls @ 100 mls/hr IV .Q10H [facility] Last Admin: 10/17/16 06:29 Dose: 100 mls/hr Morphine Sulfate (Morphine) 2 mg IVP Q4 PRN PRN Reason: Pain, Mild (1-3) Morphine Sulfate (Morphine) 4 mg IVP Q4 PRN PRN Reason: Pain, moderate (4-7) Last Admin: 10/17/16 00:59 Dose: 4 mg Ondansetron HCl (Zofran Inj) 4 mg IVP Q6 PRN PRN Reason: Nausea/Vomiting Pantoprazole Sodium (Protonix Inj) 40 mg IVP DAILY [facility] Last Admin: 10/17/16 08:28 Dose: 40 mg - Labs Labs: 10/17/16 05:10 10/17/16 06:50 PT 12.8 Seconds (9.8-13.1) 10/16/16 08:30 INR 1.2 (0.9-1.2) 10/16/16 08:30 APTT 28.9 Seconds (25.6-37.1) 10/16/16 08:30 - Constitutional Appears: No Acute Distress - Head Exam Head Exam: ATRAUMATIC, NORMAL INSPECTION, NORMOCEPHALIC - Eye Exam Eye Exam: Normal appearance - Respiratory Exam Respiratory Exam: NORMAL BREATHING PATTERN. absent: Respiratory Distress - Cardiovascular Exam Cardiovascular Exam: REGULAR RHYTHM - GI/Abdominal Exam GI & Abdominal Exam: Soft. absent: Distended, Guarding, Tenderness, Rebound Additional comments: dressings C/D/I - Neurological Exam Neurological Exam: Alert, Oriented x3 - Psychiatric Exam Psychiatric exam: Normal Affect, Normal Mood - Skin Skin Exam: Dry, Intact Assessment and Plan - Assessment and Plan (Free Text) Assessment: 46 yo F s/p lap appendectomy, POD #1 -Doing well post-operatively -Clear for discharge home from surgical standpoint -Pt instructed to F/U in office w/ Dr. Bernal in 2 weeks -Pt may resume regular diet and light activities. Remove dressings tomorrow and shower, no soaking/bathing. Take Percocet as needed for pain and transition to OTC Ibuprofen or Tylenol when able. No heavy lifting >20lbs for [address] Gabe Suarez PGy3 <Izaiah Bernal - Last Filed: 10/17/16 11:25> Objective - Vital Signs/Intake and Output Vital Signs (last 24 hours): Temp Pulse Resp BP Pulse Ox 98.7 F 68 20 131/79 95 10/17/16 07:47 10/17/16 07:47 10/17/16 07:47 10/17/16 07:47 10/17/16 07:47 - Medications Medications: Current Medications Ferrous Sulfate (Feosol) 325 mg PO BID [facility] Last Admin: 10/17/16 08:28 Dose: 325 mg Piperacillin Sod/Tazobactam (Sod 3.375 gm/ Sodium Chloride) 100 mls @ 100 mls/ hr IVPB Q6 [facility] Last Admin: 10/17/16 09:28 Dose: 100 mls/hr Lactated Ringer's (Lactated Ringer's) 1,000 mls @ 100 mls/hr IV .Q10H [facility] Last Admin: 10/17/16 06:29 Dose: 100 mls/hr Morphine Sulfate (Morphine) 2 mg IVP Q4 PRN PRN Reason: Pain, Mild (1-3) Morphine Sulfate (Morphine) 4 mg IVP Q4 PRN PRN Reason: Pain, moderate (4-7) Last Admin: 10/17/16 00:59 Dose: 4 mg Ondansetron HCl (Zofran Inj) 4 mg IVP Q6 PRN PRN Reason: Nausea/Vomiting Pantoprazole Sodium (Protonix Inj) 40 mg IVP DAILY [facility] Last Admin: 10/17/16 08:28 Dose: 40 mg - Labs Labs: 10/17/16 05:10 10/17/16 06:50 PT 12.8 Seconds (9.8-13.1) 10/16/16 08:30 INR 1.2 (0.9-1.2) 10/16/16 08:30 APTT 28.9 Seconds (25.6-37.1) 10/16/16 08:30 Assessment and Plan - Assessment and Plan (Free Text) Plan: ok to d/c home
[2016-10-17] MEDS ORDERED: Oxycodone/Acetaminophen 5/325 mg Tab PO ONE (12:50)
[2016-10-17 16:12] VITALS: BP 123/77; PULSE 80; RESP 18; TEMP 97.9
[2016-10-17 23:37] VITALS: O2SAT 100
--- NOTE | 2016-11-06 17:55 | OP ---
PROCEDURE DATE: 10/15/2016 SURGEON: Izaiah Bernal MD SHOVEL ENGINEER: Dr. Suarez. ANESTHESIA: General anesthesia, endotracheal intubation. PREOPERATIVE DIAGNOSIS: Acute appendicitis. POSTOPERATIVE DIAGNOSIS: Acute appendicitis. OPERATING PROCEEDINGS: Laparoscopic appendectomy. OPERATING FINDINGS: Acute appendicitis. PREPARATION AND PROCEDURE: The patient was taken to the operating room and placed supine on the operating room table. After induction of general anesthesia, a Hurt catheter was placed to decompress the bladder and the abdomen was prepped and draped in the standard surgical fashion. A Veress needle was inserted into the abdomen and the abdomen was insufflated. Once the abdomen was insufflated, a 5-mm trocar was placed through the umbilicus and a diagnostic laparoscopy was performed. The diagnostic laparoscopy revealed inflammation in the right lower quadrant. The patient was then placed into the Trendelenburg and left side down position, and a 5 mm suprapubic trocar as well as a 12 mm left-sided trocar were placed under direct vision. The appendix was then found at the base of the cecum, grasped, and pulled upwards. A window was made in the mesoappendix using the [place] dissector. Once the window was made in the mesoappendix, the Endo-SATNAM was fired across the appendix and the base of the appendix and cecum were severed. A second firing of the Endo-SATNAM using a vascular load was used to fire across the mesoappendix. Once the mesoappendix was severed, the appendix was placed into an EndoCatch bag. The patient then returned to the flat position. The area was inspected for hemostasis and there was no evidence of bleeding. The right lower quadrant was copiously irrigated and the irrigant was removed. The appendix was then removed via the 12 mm trocar site and the 12 mm trocar and the 5-mm trocars were removed under direct vision. The fascia of the 12 mm trocar site was reapproximated using #0 Vicryl and the skin incisions were closed using #4-0 Monocryl. The patient was then awakened from general anesthesia. The Hurt catheter was removed. Sponges, instruments, and needle counts were all correct at the end of the case. Izaiah Bernal MD
== END 2016-10-17 16:30 | disposition home or self-care (01) | DRG 883 ==
LOC: H.ER 18:15 → H.ERHOLD 21:37 → H.MEDSURG1 22:47
PROVIDERS: ADMIT Internal Medicine; ATTEND Internal Medicine
PROC: 0DTJ4ZZ Resection of Appendix, Percutaneous Endoscopic Approach (ICD-10-PCS; principal; 2016-10-16 10:45)
DX: K35.80 Unspecified acute appendicitis (principal); D25.9 Leiomyoma of uterus, unspecified; D50.9 Iron deficiency anemia, unspecified; D63.8 Anemia in other chronic diseases classified elsewhere; K21.9 Gastro-esophageal reflux disease without esophagitis; K29.70 Gastritis, unspecified, without bleeding

== ENCOUNTER 2017-06-28 15:52 | Emergency (ER) | payer OTHER ==
[2017-06-28 16:02] VITALS: TEMP 98.4
--- NOTE | 2017-06-28 16:22 | ED PDOC ---
HPI: SOB/CHF/COPD Time Seen by Provider: 06/28/17 16:03 Chief Complaint (Nursing): Shortness Of Breath History Per: Patient Onset/Duration Of Symptoms: Other (1 week) Current Symptoms Are (Timing): Still Present Quality: Tightness Severity: Mild Associated Symptoms: denies: Fever, Productive Cough, Leg/Calf Pain, Ankle/Leg Swelling Additional Complaint(s): SOB, pain on inspiration x 1 week. Denies cough or fever. Denies leg pain or swelling. Denies dizziness. Past Medical History Vital Signs: Last Vital Signs Temp 98.4 F 06/28/17 15:57 Pulse 98 H 06/28/17 15:57 Resp 22 06/28/17 16:37 BP 151/86 H 06/28/17 15:57 Pulse Ox 99 06/28/17 16:37 - Medical History PMH: Anemia Denies: Chronic Kidney Disease - Family History Family History: States: Unknown Family Hx - Home Medications Home Medications: Ambulatory Orders Medication Instructions Recorded Amoxicillin/Clavulanate [Augmentin 1 tab PO Q12 #14 tab 10/17/16 875 MG-125 MG] Ferrous Sulfate 325 mg PO BID #60 tablet 10/17/16 oxyCODONE/Acetaminophen [Percocet 1 tab PO Q6 PRN #20 tab 10/17/16 5/325 mg Tab] Albuterol Sulfate [Proventil Hfa] 2 puff IH Q8 #1 hfa.aer.ad 06/28/17 - Allergies Allergies/Adverse Reactions: Allergies Allergy/AdvReac Type Severity Reaction Status Date / Time No Known Allergies Allergy Verified 10/15/16 21:45 Review of Systems ROS Statement: Except As Marked, All Systems Reviewed And Found Negative Constitutional: Negative for: Fever Cardiovascular: Positive for: Chest Pain Respiratory: Positive for: Shortness of Breath, Pleuritic Pain. Negative for: Cough Gastrointestinal: Negative for: Abdominal Pain Musculoskeletal: Negative for: Leg Pain Physical Exam - Reviewed Nursing Documentation Reviewed: Yes Vital Signs Reviewed: Yes - Physical Exam Appears: Positive for: Non-toxic, No Acute Distress Head Exam: Positive for: ATRAUMATIC, NORMAL INSPECTION, NORMOCEPHALIC Skin: Positive for: Normal Color, Warm, DRY Eye Exam: Positive for: EOMI, Normal appearance, PERRL ENT: Positive for: Normal ENT Inspection Neck: Positive for: Normal, Painless ROM Cardiovascular/Chest: Positive for: Regular Rate, Rhythm Respiratory: Positive for: CNT, Normal Breath Sounds Gastrointestinal/Abdominal: Positive for: Normal Exam, Soft. Negative for: Tenderness Back: Positive for: Normal Inspection Extremity: Positive for: Normal ROM. Negative for: Calf Tenderness, Swelling Neurologic/Psych: Positive for: Alert, Oriented - Laboratory Results Result Diagrams: 06/28/17 16:29 06/28/17 16:29 - ECG O2 Sat by Pulse Oximetry: 99 Disposition - Clinical Impression Clinical Impression: Reactive airway disease - Patient ED Disposition Is Patient to be Admitted: No Counseled Patient/Family Regarding: Studies Performed, Diagnosis, Need For Followup, Rx Given - Disposition Referrals: [facility] [Outside] Disposition: Routine/Home Disposition Time: 18:23 Condition: FAIR Prescriptions: Albuterol Sulfate [Proventil Hfa] 2 puff IH Q8 #1 hfa.aer.ad Instructions: Asthma in Adults Forms: [facility] (Faroese) Print Language: QATARI
[2017-06-28 16:41] LABS: BASO # 0.1 K/uL (0.0-0.2); BASO % 0.8 % (0.0-2.0); EOS # 0.1 K/uL (0.0-0.7); EOS % 1.1 % (0.0-4.0); HEMOGLOBIN 9.2 g/dL (12.0-16.0); LYMPH # 1.7 K/uL (1.0-4.3); LYMPH % 19.1 % (20.0-40.0); MEAN CORPUSCULAR HGB CONC 32.2 g/dL (33.0-37.0); MEAN PLATELET VOLUME 8.9 fl (7.2-11.7); MONO # 0.8 K/uL (0.0-0.8); MONO % 9.1 % (0.0-10.0); NEUT # 6.2 K/uL (1.8-7.0); NEUT % 69.9 % (50.0-75.0); NRBC % 0.1 % (0.0-0.0); PLATELET COUNT 367 K/uL (130-400); RBC 4.59 Mil/uL (3.80-5.20); RED CELL DISTRIBUTION WIDTH 22.8 % (11.5-14.5); WHITE BLOOD COUNT 8.9 K/uL (4.8-10.8)
[2017-06-28 16:47] LABS: ALB/GLOB RATIO 1.2 (1.0-2.1); ALT/SGPT 34 U/L (9-52); AST/SGOT 34 U/L (14-36); BLOOD UREA NITROGEN 13 mg/dl (7-17); GFR AFRICAN-AMERICAN > 60; GFR NON-AFRICAN AMERICAN > 60
--- NOTE | 2017-06-28 16:48 | RAD ---
HISTORY: SOB COMPARISON: 12/09/2015. FINDINGS: LUNGS: The lungs are are well inflated and clear. PLEURA: No significant pleural effusion identified, no pneumothorax apparent. CARDIOVASCULAR: Normal. OSSEOUS STRUCTURES: No significant abnormalities. VISUALIZED UPPER ABDOMEN: Normal. OTHER FINDINGS: None. IMPRESSION: No active pulmonary disease.
[2017-06-28 17:51] LABS: LYMPHOCYTE 19 % (20-50); MONOCYTE 8 % (0-10); NEUTROPHIL 73 % (42-75); PLATELET ESTIMATE NORMAL (NORMAL); TOTAL CELLS COUNTED 100
[2017-06-28 17:53] LABS: ANISOCYTOSIS SLIGHT; HYPOCHROMIC SLIGHT; LARGE PLATELETS PRESENT; MICROCYTOSIS SLIGHT; OVALOCYTES SLIGHT; POIKILOCYTOSIS SLIGHT; TARGET CELLS SLIGHT; TEARDROP CELLS SLIGHT
[2017-06-28 17:54] LABS: STOMATOCYTES SLIGHT
[2017-06-28 18:47] VITALS: BP 130/60; PULSE 67; RESP 18; O2SAT 100
--- NOTE | 2017-06-30 09:04 | CARD ---
APPROVED REPORT EKG Measurement Heart [id number] <Conclusion> Normal sinus rhythm Normal ECG
== END 2017-06-28 18:47 | disposition home or self-care (01) ==
LOC: H.ER 15:52
DX: J45.909 Unspecified asthma, uncomplicated (principal)

== ENCOUNTER 2017-07-22 18:35 | Emergency (ER) | payer OTHER ==
[2017-07-22 19:20] VITALS: BP 140/84; PULSE 81; RESP 16; TEMP 98.3; O2SAT 100
[2017-07-22] MEDS ORDERED: Sodium Chloride 0.9% 1,000 ML IV STA (19:40)
[2017-07-22] MEDS ORDERED: Famotidine 20mg/50ml 20 MG/50 ML BAG IVPB ONE (20:06)
[2017-07-22 20:16] LABS: BASO % 0.2 % (0.0-2.0); EOS # 0.1 K/uL (0.0-0.7); EOS % 0.7 % (0.0-4.0); HEMOGLOBIN 8.4 g/dL (12.0-16.0); LYMPH # 1.6 K/uL (1.0-4.3); LYMPH % 15.9 % (20.0-40.0); MEAN CORPUSCULAR HEMOGLOBIN 19.1 pg (27.0-31.0); MEAN CORPUSCULAR HGB CONC 31.1 g/dL (33.0-37.0); MEAN PLATELET VOLUME 8.8 fl (7.2-11.7); MONO # 0.9 K/uL (0.0-0.8); MONO % 9.2 % (0.0-10.0); NEUT # 7.4 K/uL (1.8-7.0); RBC 4.41 Mil/uL (3.80-5.20); RED CELL DISTRIBUTION WIDTH 20.6 % (11.5-14.5)
[2017-07-22 20:37] LABS: ALB/GLOB RATIO 1.1 (1.0-2.1); ALBUMIN 3.8 g/dL (3.5-5.0); ALT/SGPT 40 U/L (9-52); AST/SGOT 30 U/L (14-36); BLOOD UREA NITROGEN 8 mg/dl (7-17); CALCIUM 8.8 mg/dL (8.4-10.2); GFR AFRICAN-AMERICAN > 60; GFR NON-AFRICAN AMERICAN > 60; LIPASE 108 U/L (23-300)
--- NOTE | 2017-07-22 20:58 | ED PDOC ---
HPI: Abdomen Time Seen by Provider: 07/22/17 19:00 Chief Complaint (Nursing): Abdominal Pain Chief Complaint (Provider): Abdominal Pain History Per: Patient History/Exam Limitations: no limitations Onset/Duration Of Symptoms: Days (X4) Current Symptoms Are (Timing): Still Present Associated Symptoms: Nausea, Vomiting, Diarrhea. denies: Fever Additional Complaint(s): 46 year old female, with a past medical history of anemia, presents to the ED complaining of nausea, vomiting, and diarrhea for the past 4 days. Denies fever. PMD: None provided Past Medical History Reviewed: Historical Data, Nursing Documentation, Vital Signs Vital Signs: Last Vital Signs Temp 98.3 F 07/22/17 19:18 Pulse 81 07/22/17 19:18 Resp 16 07/22/17 19:18 BP 140/84 07/22/17 19:18 Pulse Ox 100 07/23/17 21:06 - Medical History PMH: Anemia Denies: Chronic Kidney Disease - Surgical History Surgical History: No Surg Hx - Family History Family History: States: Unknown Family Hx - Social History Current smoker - smoking cessation education provided: No Alcohol: None Drugs: Denies - Home Medications Home Medications: Ambulatory Orders Medication Instructions Recorded Amoxicillin/Clavulanate [Augmentin 1 tab PO Q12 #14 tab 10/17/16 875 MG-125 MG] Ferrous Sulfate 325 mg PO BID #60 tablet 10/17/16 oxyCODONE/Acetaminophen [Percocet 1 tab PO Q6 PRN #20 tab 10/17/16 5/325 mg Tab] Albuterol Sulfate [Proventil Hfa] 2 puff IH Q8 #1 hfa.aer.ad 06/28/17 Ondansetron [Zofran] 4 mg PO Q6H PRN #5 tab 07/22/17 - Allergies Allergies/Adverse Reactions: Allergies Allergy/AdvReac Type Severity Reaction Status Date / Time No Known Allergies Allergy Verified 07/22/17 19:17 Review of Systems ROS Statement: Except As Marked, All Systems Reviewed And Found Negative Constitutional: Negative for: Fever Gastrointestinal: Positive for: Nausea, Vomiting, Diarrhea Physical Exam - Reviewed Nursing Documentation Reviewed: Yes Vital Signs Reviewed: Yes - Physical Exam Appears: Positive for: Well (obese), Non-toxic, No Acute Distress Head Exam: Positive for: ATRAUMATIC, NORMOCEPHALIC Skin: Positive for: Normal Color, Warm, Dry Eye Exam: Positive for: EOMI, Normal appearance, PERRL ENT: Positive for: Normal ENT Inspection Neck: Positive for: Normal, Painless ROM, Supple Cardiovascular/Chest: Positive for: Regular Rate, Rhythm. Negative for: Murmur Respiratory: Positive for: Normal Breath Sounds. Negative for: Respiratory Distress Gastrointestinal/Abdominal: Positive for: Normal Exam, Bowel Sounds, Soft. Negative for: Tenderness, Mass Back: Positive for: Normal Inspection Extremity: Positive for: Normal ROM. Negative for: Pedal Edema, Deformity Neurologic/Psych: Positive for: Alert, Oriented (x3) - Laboratory Results Result Diagrams: 07/22/17 20:11 07/22/17 20:11 - ECG O2 Sat by Pulse Oximetry: 100 (RA) Pulse Ox Interpretation: Normal Medical Decision Making Medical Decision Making: Time: 2010 Plan: nausea, vomiting, diarrhea, rule out gastroenteritis. abdominal exam normal, soft non tender. pt in no distress at this time. therefore no necc. for imaging at this time. -- CMP -- Lipase -- CBC with differentials -- Hemoglobin = 8.4 -- Baseline 8.9-9.2 Time: 2207 -- Lab results show patient is slightly anemic. pt aware. Time: 2234 -- Patient still in pain, will be given more medications. Patient will be given another dose of Zofram. Currently, patient is tolerating PO. Time: 2255 -- Patient made aware of anemia and advised to follow up with physician for further evaluation. Additionally, patient is advised to take iron medications for anemia. Scribe Attestation: Documented by Akbar Shah, acting as a scribe for Dr. Chidi Montalvo MD. Provider Scribe Attestation: All medical record entries made by the Scribe were at my direction and personally dictated by me. I have reviewed the chart and agree that the record accurately reflects my personal performance of the history, physical exam, medical decision making, and the department course for this patient. I have also personally directed, reviewed, and agree with the discharge instructions and disposition. Disposition - Clinical Impression Clinical Impression: Abdominal pain, Anemia - Patient ED Disposition Is Patient to be Admitted: No Counseled Patient/Family Regarding: Studies Performed, Diagnosis, Need For Followup - Disposition Referrals: [facility] [Outside] Disposition: Routine/Home Disposition Time: 21:00 Condition: IMPROVED Additional Instructions: please follow up with your doctor in 1-2 days return to the ED with any worsening or concerning symptoms. Prescriptions: Ondansetron [Zofran] 4 mg PO Q6H PRN #5 tab PRN Reason: Nausea/Vomiting Instructions: Anemia Caused by Low Iron, Viral Gastroenteritis, Acute Abdomen ( Belly Pain), Adult (DC), Nausea and Vomiting, Adult (DC) Forms: [facility] (Burmese) Print Language: KITTITIAN
[2017-07-22 21:53] LABS: MEAN CELL VOLUME 61.6 fl (81.0-99.0)
== END 2017-07-22 23:52 | disposition home or self-care (01) ==
LOC: H.ER 18:35
DX: R10.9 Unspecified abdominal pain (principal); D64.9 Anemia, unspecified
CPT/HCPCS: 80053; 81025; 83690; 85025; 96374; 99283; J7040

== ENCOUNTER 2017-09-22 09:51 | Emergency (ER) | payer OTHER, SELFPAY ==
--- NOTE | 2017-09-22 11:32 | ED PDOC ---
HPI: CCC, URI, Sore Throat Time Seen by Provider: 09/22/17 10:20 Chief Complaint (Nursing): ENT Problem Chief Complaint (Provider): ENT Problem History Per: Patient History/Exam Limitations: no limitations Onset/Duration Of Symptoms: Days (x1 week) Current Symptoms Are (Timing): Still Present Additional Complaint(s): 47 year old female presents to the emergency department with sore throat, nasal congestion ongoing for 1 week. Patient reports that last night, she had ringing and itchiness in both ears (left > right). She denies any fever or chills. PMD: none provided Past Medical History Reviewed: Historical Data, Nursing Documentation, Vital Signs Vital Signs: Last Vital Signs Temp 98.3 F 09/22/17 12:01 Pulse 79 09/22/17 12:01 Resp 17 09/22/17 12:01 BP 129/81 09/22/17 12:01 Pulse Ox 99 09/22/17 12:01 - Medical History PMH: Anemia Denies: Chronic Kidney Disease - Surgical History Surgical History: No Surg Hx - Family History Family History: States: Unknown Family Hx - Social History Current smoker - smoking cessation education provided: No Alcohol: None Drugs: Denies - Home Medications Home Medications: Ambulatory Orders Medication Instructions Recorded Amoxicillin/Clavulanate [Augmentin 1 tab PO Q12 #14 tab 10/17/16 875 MG-125 MG] Ferrous Sulfate 325 mg PO BID #60 tablet 10/17/16 oxyCODONE/Acetaminophen [Percocet 1 tab PO Q6 PRN #20 tab 10/17/16 5/325 mg Tab] Albuterol Sulfate [Proventil Hfa] 2 puff IH Q8 #1 hfa.aer.ad 06/28/17 Ondansetron [Zofran] 4 mg PO Q6H PRN #5 tab 07/22/17 - Allergies Allergies/Adverse Reactions: Allergies Allergy/AdvReac Type Severity Reaction Status Date / Time No Known Allergies Allergy Verified 09/22/17 09:59 Review of Systems ROS Statement: Except As Marked, All Systems Reviewed And Found Negative Constitutional: Negative for: Fever, Chills ENT: Positive for: Nose Congestion, Throat Pain, Other (bilateral tinnitis with itchiness (left > right)) Respiratory: Positive for: Cough, Sputum Physical Exam - Reviewed Nursing Documentation Reviewed: Yes Vital Signs Reviewed: Yes - Physical Exam Appears: Positive for: Well, Non-toxic, No Acute Distress Head Exam: Positive for: ATRAUMATIC, NORMAL INSPECTION, NORMOCEPHALIC Skin: Positive for: Normal Color Eye Exam: Positive for: Normal appearance ENT: Positive for: Normal ENT Inspection, Pharynx Is (normal), TM Is/Are ( normal in right ear. left ear with fluid). Negative for: Sinus Pain/Drainage, Nasal Congestion, Pharyngeal Erythema, Tonsillar Exudate, Tonsillar Swelling Neck: Positive for: Normal Cardiovascular/Chest: Positive for: Regular Rate, Rhythm Respiratory: Positive for: Normal Breath Sounds. Negative for: Wheezing, Respiratory Distress Gastrointestinal/Abdominal: Positive for: Soft Neurologic/Psych: Positive for: Alert (x3), Oriented - ECG O2 Sat by Pulse Oximetry: 98 (RA) Pulse Ox Interpretation: Normal Medical Decision Making Medical Decision Making: Initial Impression: URI no fever Initial Plan: * Rapid strep Time: 1155 --Negative for strep. pt feels fine, she states she has to [facility] now. instructed to follow up as outpt and retunr if anything worsens. Scribe Attestation: Documented by Marisa Bonilla, acting as a scribe for Chidi Montalvo MD. Provider Scribe Attestation: All medical record entries made by the Scribe were at my direction and personally dictated by me. I have reviewed the chart and agree that the record accurately reflects my personal performance of the history, physical exam, medical decision making, and the department course for this patient. I have also personally directed, reviewed, and agree with the discharge instructions and disposition. Disposition - Clinical Impression Clinical Impression: Viral upper respiratory illness - Patient ED Disposition Is Patient to be Admitted: No Counseled Patient/Family Regarding: Studies Performed, Diagnosis, Need For Followup - Disposition Referrals: [facility] [Outside] [facility] [Outside] Disposition: Routine/Home Disposition Time: 12:00 Condition: IMPROVED Additional Instructions: follow up in the clinic in 1-2 days return to the ED with any worsening or concerning symptoms Instructions: Viral Upper Respiratory Infection, Adult (DC) Forms: [employer] ([place]ish)
[2017-09-22 12:12] VITALS: BP 129/81; PULSE 79; RESP 17; TEMP 98.3
[2017-09-22 15:22] VITALS: O2SAT 98
== END 2017-09-22 12:01 | disposition home or self-care (01) ==
LOC: H.ER 09:51
DX: J06.9 Acute upper respiratory infection, unspecified (principal)

== ENCOUNTER 2018-05-22 11:36 | Emergency (ER) | payer OTHER, SELFPAY ==
[2018-05-22 11:38] VITALS: BMI 38.9
[2018-05-22 11:40] VITALS: BP 114/75; PULSE 79; RESP 17; TEMP 98.6; O2SAT 100
--- NOTE | 2018-05-22 13:00 | ED PDOC ---
HPI: General Adult Time Seen by Provider: 05/22/18 12:09 Chief Complaint (Nursing): ENT Problem Chief Complaint (Provider): ENT Problem History Per: Patient History/Exam Limitations: no limitations Onset/Duration Of Symptoms: Days (x 4-5) Current Symptoms Are (Timing): Still Present Severity: Moderate Additional Complaint(s): 47 year old female presents to the ED for evaluation of a throat discomfort for 4-5 days. Patient reports a foreign body sensation in her throat. She states her throat is "filled with mucus that is stuck". When patient is able to clear her nasal secretions, the sensation temporarily subsides. She denies pain in her throat and pain on swallowing. Offers no other complaints at this time. PMD: none provided Past Medical History Reviewed: Historical Data Vital Signs: Last Vital Signs Temp 98.6 F 05/22/18 11:38 Pulse 79 05/22/18 11:38 Resp 17 05/22/18 11:38 BP 114/75 05/22/18 11:38 Pulse Ox 100 05/22/18 11:38 - Medical History PMH: Anemia Denies: Chronic Kidney Disease - Surgical History Surgical History: No Surg Hx - Family History Family History: States: Unknown Family Hx - Home Medications Home Medications: Ambulatory Orders Medication Instructions Recorded Amoxicillin/Clavulanate [Augmentin 1 tab PO BID #14 tab 10/01/17 875 MG-125 MG] Loratadine [Claritin] 10 mg PO DAILY #20 tab 10/01/17 Prednisone [Deltasone] 40 mg PO DAILY #6 tablet 10/01/17 Cetirizine HCl [Zyrtec] 10 mg PO DAILY #30 tab.rapdis 05/22/18 - Allergies Allergies/Adverse Reactions: Allergies Allergy/AdvReac Type Severity Reaction Status Date / Time No Known Allergies Allergy Verified 10/01/17 14:59 Review of Systems ROS Statement: Except As Marked, All Systems Reviewed And Found Negative Constitutional: Negative for: Fever, Chills ENT: Positive for: Other (foreign body sensation in throat; discomfort ). Negative for: Throat Pain Physical Exam - Reviewed Nursing Documentation Reviewed: Yes Vital Signs Reviewed: Yes - Physical Exam Appears: Positive for: No Acute Distress Head Exam: Positive for: ATRAUMATIC, NORMAL INSPECTION, NORMOCEPHALIC Skin: Positive for: Normal Color, Warm, Dry. Negative for: Rash Eye Exam: Positive for: EOMI, Normal appearance, PERRL ENT: Positive for: Pharynx Is ((-) erythema, (-) exudate, (+) uvula midline), Nasal Congestion (post nasal drip). Negative for: Sinus Pain/Drainage, Other (foreign body visualized) Neck: Positive for: Normal, Painless ROM, Supple Cardiovascular/Chest: Positive for: Regular Rate, Rhythm. Negative for: Murmur Respiratory: Positive for: Normal Breath Sounds. Negative for: Respiratory Dis tress Extremity: Positive for: Normal ROM (upper and lower extremities). Negative for: Deformity Neurological/Psych: Positive for: Awake, Alert, Normal Tone, Oriented. Negative for: Motor/Sensory Deficits - ECG O2 Sat by Pulse Oximetry: 100 (RA) Pulse Ox Interpretation: Normal Medical Decision Making Medical Decision Makin:35 MDM: X-ray of soft tissue in neck ordered due to reported foreign body sensation. X-ray: negative, (-) fb; as read by me. Patient is otherwise well here and able to tolerate PO. There was no foreign body visualized on exam and normal xray. However, if sensation persists, advised f/u with ent, referral given. Scribe Attestation: Documented by Molly Silvestre acting as a scribe for Laurence Colindres PA-C. Provider Scribe Attestation: All medical record entries made by the Scribe were at my direction and personally dictated by me. I have reviewed the chart and agree that the record accurately reflects my personal performance of the history, physical exam, medical decision making, and the department course for this patient. I have also personally directed, reviewed, and agree with the discharge instructions and disposition. Disposition - Clinical Impression Clinical Impression: Post-nasal drainage, Throat and mouth symptom - Patient ED Disposition Is Patient to be Admitted: No Counseled Patient/Family Regarding: Studies Performed, Diagnosis, Need For Followup, Rx Given - Disposition Referrals: [facility] [Outside] Luis Montesinos MD [Staff Provider] - Disposition: Routine/Home Disposition Time: 13:56 Condition: STABLE Prescriptions: Cetirizine HCl [Zyrtec] 10 mg PO DAILY #30 tab.rapdis Instructions: Cough, Runny Nose, and the Common Cold (DC) Forms: [employer] (Tajik)
--- NOTE | 2018-05-22 13:46 | RAD ---
Date of service: 05/22/2018 HISTORY: Foreign body sensation COMPARISON: No prior FINDINGS: No definitive radiographic evidence of a radiopaque foreign body. Prevertebral soft tissues appear unremarkable without subcutaneous emphysema. Mild multilevel degenerative spondylosis of the cervical spine. If symptoms persist foreign body suspected clinically consider follow-up CT scan. IMPRESSION: No evidence of radiopaque foreign body. Consider follow-up CT scan at foreign body is suspected Mild multilevel degenerative spondylosis of the cervical
== END 2018-05-22 14:00 | disposition home or self-care (01) ==
LOC: H.ER 11:36
DX: J02.9 Acute pharyngitis, unspecified (principal); R09.82 Postnasal drip